=== PATIENT | male | born 1950 | race Two or more races ===

== ENCOUNTER 2025-04-11 16:14 | Inpatient (IN) | payer OTHER ==
[~2025-04-11] VITALS: Ht 177.8 cm; Wt 76.2 kg
--- NOTE | 2025-04-11 16:23 | NUR ---
PTE REFERIDO POR EL DR. EDMOND VELAZCO POR PLAQUETAS BAJAS, FIEBRE Y MALESTAR GENERALIZADO.
[2025-04-11] MEDS ORDERED: PROTONIX20 MG PO (16:28)
[2025-04-11] MEDS ORDERED: ENTRESTO 24 MG1 EACH PO (16:28)
[2025-04-11] MEDS ORDERED: CHILDREN'S ASPI81 MG PO (16:29)
[2025-04-11] MEDS ORDERED: TOPROL XL25 M1 PO (16:29)
[2025-04-11] MEDS ORDERED: 0.9 % SODIUM CHLORIDE 1,000 ML IV ONE (16:30)
--- NOTE | 2025-04-11 16:54 | NUR ---
SE ORIENTA PTE SOBRE TX MEDICO EL CUAL REFIERE ENTENDER.SE LE EXTRAEN MUESTRAS BAJO MEDIDAS ASEPTICAS,SE CANALIZA Y SE COLOCAN FLUIDOS DE MANTENIMIENTO.SE LOTTIE BAJO OBSERVACION.
[2025-04-11 17:16] LABS: BASO % 0.7 % (0.1-1.2); EOS # 0.04 (0.04-0.54); EOS % 1.4 % (0.7-7.0); LYMPH # 0.93 (1.18-3.74); LYMPH % 32.5 % (19.3-53.1); MEAN PLATELET VOLUME 10.10 fl (9.4-12.4); MONO # 0.49 (0.24-0.82); NEUT # 1.37 (1.56-6.13); NEUT % 48.0 % (34.0-71.1); RED CELL DISTRIBUTION WIDTH 13.4 % (11.6-14.4)
[2025-04-11 17:21] LABS: MONO % 17.1 % (4.7-12.5)
[2025-04-11 17:34] LABS: INR 1.03
[2025-04-11 17:39] LABS: ALT/SGPT 60.0 U/L (12-78); AST/SGOT 62.0 U/L (15-37); BILIRUBIN TOTAL 0.6 mg/dL (0.3-1.2); BUN CREA RATIO 17.0 (7.0-25.0); CREATININE SERUM 1.45 mg/dL (0.70-1.30); GFR 47.44; GLOBULINA 3.8 G/DL (2.4-3.5); GLUCOSE FASTING 91.0 mg/dL (65-100); OSMOLALITY SERUM 278.0 MOSM/KG (275-295)
[2025-04-11 17:50] LABS: COVID-19 AG NEGATIVE (NEGATIVE)
[2025-04-11] MEDS ORDERED: FAMOTIDINE/PF 20 MG in 0.9 % SODIUM CHLORIDE 8 ML IV PUSH SCH (18:19)
[2025-04-11] MEDS ORDERED: ACETAMINOPHEN 325 MG TABLET PO PRN (18:30)
[2025-04-11] MEDS ORDERED: 0.9 % SODIUM CHLORIDE 1,000 ML IV SCH (18:30)
[2025-04-11] MEDS ORDERED: ONDANSETRON HCL 4 MG in 0.9 % SODIUM CHLORIDE 50 ML IV PRN (18:30)
[2025-04-11] MEDS ORDERED: METOPROLOL SUCCINATE 25 MG TAB.SR.24H PO SCH (18:33)
[2025-04-11] MEDS ORDERED: LISINOPRIL 5 MG TABLET PO SCH (18:39)
[2025-04-11] MEDS ORDERED: FAMOTIDINE/PF 20 MG/2 ML VIAL ONE (18:54)
[2025-04-11 19:11] VITALS: BP 110/70
[2025-04-11 19:26] LABS: URINE APPEARANCE Clear; URINE BILIRRUBIN Negative (NEGATIVE); URINE BLOOD Small; URINE COLOR Dark Yellow; URINE GLUCOSE Negative (NEGATIVE); URINE KETONE 15 (NEGATIVE); URINE LEUKOCYTE Negative; URINE NITRATE Negative; URINE UROBILINOGEN 0.2 E.U./dl
[2025-04-11 19:30] LABS: URINE BACTERIA 45.6 uL (0.0-1933); URINE CAST 8.35 uL (0.0-1.40); URINE EPITHELIAL CELLS 25.2 uL (0.0-38.8); URINE RBC 2.6 uL (0.0-20.8); URINE WBC 6.1 uL (0.0-23.2)
[2025-04-11 19:54] LABS: URINE PROTEIN 300 (NEGATIVE)
[2025-04-11 19:58] LABS: TYPE CELLS SQUAMOUS; URINE MUCUS SCANT
[2025-04-11 23:22] VITALS: BP 126/66; O2SAT 97
[2025-04-12 05:44] LABS: BASO % 0.7 % (0.1-1.2); EOS # 0.10 (0.04-0.54); EOS % 3.3 % (0.7-7.0); LYMPH # 1.26 (1.18-3.74); LYMPH % 41.7 % (19.3-53.1); MEAN PLATELET VOLUME 10.20 fl (9.4-12.4); MONO # 0.41 (0.24-0.82); NEUT # 1.22 (1.56-6.13); NEUT % 40.4 % (34.0-71.1); RED CELL DISTRIBUTION WIDTH 13.2 % (11.6-14.4)
[2025-04-12 06:22] LABS: ALT/SGPT 55.0 U/L (12-78); AST/SGOT 56.0 U/L (15-37); BILIRUBIN TOTAL 0.39 mg/dL (0.3-1.2); BUN CREA RATIO 20.0 (7.0-25.0); CREATININE SERUM 1.11 mg/dL (0.70-1.30); GFR 64.58; GLOBULINA 3.2 G/DL (2.4-3.5); GLUCOSE FASTING 79.0 mg/dL (65-100); OSMOLALITY SERUM 282.0 MOSM/KG (275-295)
[2025-04-12 07:25] LABS: MONO % 13.6 % (4.7-12.5)
[2025-04-12 07:28] LABS: BAND MAN 8.0 %; BASOPHIL MAN 1.0 %; EOSINOPHIL MAN 2.0 %; LYMPHOCYTE MAN 14.0 %; MONOCYTE MAN 9.0 %; NEUTROPHILS MAN 36.0 %
[2025-04-12 08:55] VITALS: BP 126/83; O2SAT 98
[2025-04-12 18:04] VITALS: BP 160/85; O2SAT 100
[2025-04-13 02:41] VITALS: BP 123/77; O2SAT 96
[2025-04-13 05:01] LABS: BASO % 0.5 % (0.1-1.2); EOS # 0.15 (0.04-0.54); EOS % 3.6 % (0.7-7.0); LYMPH # 2.03 (1.18-3.74); LYMPH % 48.3 % (19.3-53.1); MEAN PLATELET VOLUME 10.10 fl (9.4-12.4); MONO # 0.42 (0.24-0.82); MONO % 10.0 % (4.7-12.5); NEUT # 1.57 (1.56-6.13); NEUT % 37.4 % (34.0-71.1); RED CELL DISTRIBUTION WIDTH 13.2 % (11.6-14.4)
[2025-04-13 05:51] LABS: BAND MAN 7.0 %; LYMPHOCYTE MAN 32.0 %; NEUTROPHILS MAN 27.0 %
[2025-04-13 05:52] LABS: BASOPHIL MAN 1.0 %; MONOCYTE MAN 11.0 %
[2025-04-13 06:13] LABS: BLAST MAN 3.0 %
[2025-04-13 10:20] LABS: MANUAL PLATELET COUNT 60
[2025-04-13 11:02] VITALS: BP 137/79; O2SAT 98
== END 2025-04-13 14:10 | disposition home or self-care (01) | DRG 866 ==
LOC: ER 16:14 → SEC-K 19:27 → MEDJ 19:27
PROVIDERS: General Practice; ADMIT Internal Medicine; ATTEND Internal Medicine
PROC: 8E0ZXY6 Isolation (ICD-10-PCS; principal; 2025-04-11)
DX: A90 Dengue fever [classical dengue] (principal); D61.818 Other pancytopenia; D69.6 Thrombocytopenia, unspecified; K06.8 Other specified disorders of gingiva and edentulous alveolar ridge; R53.1 Weakness; B34.9 Viral infection, unspecified